=== PATIENT | female | born 1960 | race Caucasian/White ===

== ENCOUNTER 2023-01-29 14:07 | Outpatient (REF) | payer MEDICAID, SELFPAY ==
--- NOTE | 2023-01-29 13:05 | SKI_PTH ---
PATIENT: Ifrah Gonzalez LOC: [facility] U#:[id number] AGE/SX: 62/F ROOM: RE01/29/[address]: Antonio Ding DO : 1960 BED: DIS: 01/29/2023 SPEC #: [id number] RECD: 02/01/23 12:17 STATUS: SHANTE REQ #: [id number] MARGRET: 01/29/23 13:[address]: Antonio Ding DEPT: Surgical Specimen RECD BY: Delisa Clement ENTERED: 02/01/23 12:17 SP TYPE: GINA LYNN DR: HUMPHREY BARILLAS Tissues: 1 - SKIN BIOPSY(SHAVE/PUNCH) Procedures: IMMUNOPEROXIDASE STAIN SKIN LEVEL 4 Comments: [id number]
== END 2023-01-29 14:08 | disposition home or self-care (01) ==
LOC: LBN 14:07
PROVIDERS: PCP Nurse Practitioner Primary Care; Visit Provider Otolaryngology Otolaryngology/Facial Plastic Surgery
DX: D22.5 Melanocytic nevi of trunk (principal); D48.5 Neoplasm of uncertain behavior of skin
CPT/HCPCS: 88305; 88361

== ENCOUNTER 2024-08-07 16:16 | Emergency (ER) | payer MEDICAID, SELFPAY ==
[2024-08-07 16:27] VITALS: BP 101/66; PULSE 74; RESP 16; TEMP 37.1; O2SAT 98
--- NOTE | 2024-08-07 16:30 | DI.RAD_ITS ---
Exam(s) XR CHEST 2V PA LATERAL EXAM: XR CHEST 2V PA LATERAL CLINICAL HISTORY: COUGH. TECHNIQUE: 2D digital imaging was performed. COMPARISON: No exams were available for comparison FINDINGS: 2 views: Heart size is normal. The mediastinum is not widened. Left lung is clear. There is some atelectasis in the right lung base and blunting of the right costo phrenic angle consistent with small amount of right pleural fluid. IMPRESSION: Atelectasis and probable mild infiltrate in the right lung base-right lower lobe. Mild blunting of t he right costophrenic angle which probably indicates a small amount of right pleural fluid. DATA REPOSITORY: RADIATION DOSE DELIVERED:
[2024-08-07 17:54] VITALS: BP 101/66; PULSE 74; RESP 16; TEMP 37.1; O2SAT 98
--- NOTE | 2024-08-07 22:26 | ED.GENADUL_ITS ---
Discharge Plan Disposition Patient Disposition: Home Condition: Stable Discharge Details Clinical Impression: Pneumonia Primary Care Provider: HUMPHREY BARILLAS ED Provider: Molly Hilario Home Meds and New Rx's Prescriptions: New promethazine 6.25 mg/5 mL syrup 12.5 mg PO Q6H PRN (Reason: cough) Qty: 120 0RF prednisone 20 mg tablet 40 mg PO DAILY 5 Days Qty: 10 0RF benzonatate 100 mg capsule 100 mg PO TID PRN (Reason: cough) Qty: 30 0RF amoxicillin-pot clavulanate 875-125 mg tablet 1 tab PO BID Qty: 14 0RF No Action BENADRYL 25 MG capsule 25 mg PO PRN polyethylene glycol 3350 [Miralax] 17 GM powder in packet 255 gm PO for colonoscopy Qty: 1 bisacodyl [Dulcolax (bisacodyl)] 5 MG tablet,delayed release (DR/EC) 5 mg PO ONCE Qty: 4 Rx Instructions: take as directed. acetaminophen 500 mg capsule 500 mg PO Q6H PRN clonazepam 1 mg tablet 1 mg PO TID Rx Instructions: seen by psychiatry gabapentin 600 mg tablet 600 mg PO DIRECTED hydroxyzine HCl 25 mg tablet 25 mg PO DAILY PRN omeprazole 20 mg capsule,delayed release(DR/EC) 20 mg PO DAILY omeprazole 40 mg capsule,delayed release(DR/EC) 40 mg PO DAILY oxycodone-acetaminophen [Percocet] 5-325 mg tablet 1 tab PO DIRECTED albuterol sulfate [ProAir HFA] 90 mcg/actuation HFA aerosol inhaler 2 puff inhalation Q6H PRN cholecalciferol (vitamin D3) 50 mcg (2,000 unit) capsule 50 mcg PO DAILY lisinopril 10 mg tablet 20 mg PO DAILY Discharge Instructions Instructions: Pneumonia, Adult (DC) Additional Instructions: Your symptoms are consistent with pneumonia, you have been prescribed an antibiotic to start taking I have also prescribed some cough medication. The Phenergan syrup can help with cough and will also help with getting a little bit of sleep. Because you are smoker. Prednisone has been sent as well. Use your albuterol inhaler with a spacer to help with your cough Please follow-up with your primary care provider Discharge Data Discharge Date/Time-TO BE ENTERED AT DEPARTURE: 08/07/24 18:02 HPI General Date/Time Provider Initiated Documentation: 08/07/24 16:42 . Limitations to Documentation: no limitations . Information obtained by: patient . HPI Narrative: 64-year-old female with past medical history of COPD, hypertension, MS presents for evaluation of cough. She has been sick for about a week. Symptoms include body aches fatigue and cough. Cough has been nonproductive. She did have a little bit of vomiting and diarrhea the first few days of the illness, but this is resolved. Now she is eating and drinking normally. She is more concerned about her cough. She states that it so bad she cannot even smoke. She has not been having persistent fevers. Related Data Home Medications ?Medication ?Instructions ?Recorded ?Confirmed Benadryl 25 mg PO PRN 11/18/11 01/29/23 bisacodyl 5 mg tablet,delayed 5 mg PO ONCE #4 tabs 11/10/16 01/29/23 release (Dulcolax (bisacodyl)) polyethylene glycol 3350 17 gram 255 gm PO for colonoscopy #1 g 11/10/16 01/29/23 oral powder packet (Miralax) acetaminophen 500 mg capsule 500 mg PO Q6H PRN 09/08/22 01/29/23 albuterol sulfate 90 mcg/actuation 2 puff inhalation Q6H PRN 09/08/22 01/29/23 aerosol inhaler (ProAir HFA) cholecalciferol (vitamin D3) 50 50 mcg PO DAILY 09/08/22 01/29/23 mcg (2,000 unit) capsule clonazepam 1 mg tablet 1 mg PO TID 09/08/22 01/29/23 gabapentin 600 mg tablet 600 mg PO DIRECTED 09/08/22 01/29/23 hydroxyzine HCl 25 mg tablet 25 mg PO DAILY PRN 09/08/22 01/29/23 lisinopril 10 mg tablet 20 mg PO DAILY 09/08/22 01/29/23 omeprazole 20 mg capsule,delayed 20 mg PO DAILY 09/08/22 01/29/23 release omeprazole 40 mg capsule,delayed 40 mg PO DAILY 09/08/22 01/29/23 release oxycodone-acetaminophen 5 mg-325 1 tab PO DIRECTED 09/08/22 01/29/23 mg tablet (Percocet) amoxicillin 875 mg-potassium 1 tab PO BID #14 tabs 01/27/25 clavulanate 125 mg tablet benzonatate 100 mg capsule 100 mg PO TID PRN cough #30 caps 08/07/24 prednisone 20 mg tablet 40 mg (2 x 20 mg) PO DAILY 5 days 08/07/24 #10 tabs promethazine 6.25 mg/5 mL oral 12.5 mg (10 mL) PO Q6H PRN cough 08/07/24 syrup #120 mL Previous Rx's ?Medication ?Instructions ?Recorded amoxicillin 875 mg-potassium 1 tab PO BID #14 tabs 08/07/24 clavulanate 125 mg tablet benzonatate 100 mg capsule 100 mg PO TID PRN cough #30 caps 08/07/24 prednisone 20 mg tablet 40 mg (2 x 20 mg) PO DAILY 5 days 08/07/24 #10 tabs promethazine 6.25 mg/5 mL oral 12.5 mg (10 mL) PO Q6H PRN cough 08/07/24 syrup #120 mL Allergies Allergy/AdvReac Type Severity Reaction Status Date / Time azithromycin (From Zithromax) Allergy Unknown Unverified 01/29/23 13:00 ibuprofen Allergy Unknown Unverified 01/29/23 13:00 methadone Allergy Unknown Unverified 01/29/23 13:00 naproxen (From Naprosyn) Allergy Unknown Unverified 01/29/23 13:00 atorvastatin Allergy Verified 01/29/23 13:00 General Stated Complaint: RespSymp BISI: 4 Exam Narrative Exam Narrative: Review of Systems: All systems reviewed & are unremarkable except as noted in HPI and below Well-developed, no acute distress NCAT PERRL, normal conjunctiva Moist mucous membranes no wheezing, no tachypnea RRR Unlabored respiratory effort Course Vital Signs Vital signs: Vital Signs Temperature 37.1 C 08/07/24 16:27 Pulse 74 08/07/24 16:27 Respiratory Rate 16 08/07/24 16:27 Blood Pressure 101/66 08/07/24 16:27 Pulse Oximetry 98 08/07/24 16:27 Temperature 37.1 C 08/07/24 17:54 Pulse 74 08/07/24 17:54 Respiratory Rate 16 08/07/24 17:54 Respiratory Effort Normal 08/07/24 18:00 Respiratory Depth Normal 08/07/24 18:00 Blood Pressure 101/66 08/07/24 17:54 Pulse Oximetry 98 08/07/24 17:54 Pain Level 10 08/07/24 17:54 Medical Decision Making Emergent evaluation of URI symptoms. The patient is hemodynamically stable and no signs of respiratory distress on examination. She does have a smoking history. A chest x-ray was obtained and this is concerning for consolidation. I will treat with antibiotics. She has a allergy to azithromycin, so I will treat her with Augmentin. The patient also has significant tobacco use history, so she will be given steroids. She was also provided with medication to help with symptom relief of cough. Recommend follow-up with PCP as needed. Return precautions advised Quality:SDOH Health Related Social Needs: No Data to Display PFSH All Active Problems Pneumonia (Acute) Tobacco dependence syndrome (Acute) MS (multiple sclerosis) (Chronic) Idiopathic peripheral neuropathy (Acute) HTN (hypertension) (Chronic) GERD (gastroesophageal reflux disease) (Chronic) Essential hypertension (Acute) COPD (chronic obstructive pulmonary disease) (Chronic) Bipolar disorder (Chronic) Anxiety (Chronic) Medical History History of ductal carcinoma in situ of breast Hemoglobinuria Hypercalcemia Nicotine dependence PTSD (post-traumatic stress disorder) Memory loss Chronic pain syndrome Erythromelalgia Major depressive disorder Primary hyperparathyroidism Malignant neoplasm of lung Pain in left foot Pain in right foot Menopause present Pain in thoracic spine Mixed hyperlipidemia Human papilloma virus (HPV) infection Thyroid nodule Burning feet syndrome Cervical myelopathy Insomnia Abnormal mammography Abnormal blood chemistry test Erythrocytosis Intractable chronic migraine without aura Leukocytosis Primary adenocarcinoma of lower lobe of right lung Surgical History H/O breast surgery H/O section x2 History of cervical polypectomy History of bilateral tubal ligation Family History Mother Colon cancer Maternal Aunt Breast cancer Sister Thyroiditis Social History Smoking/Tobacco Use Status: Current every day Smoking risk assessment performed?: Yes Alcohol Intake: current Alcohol Intake frequency: a few times a week Substance use type: marijuana
== END 2024-08-07 18:02 | disposition home or self-care (01) ==
LOC: ER 18:14
PROVIDERS: Emergency Provider Emergency Medicine; PCP Nurse Practitioner Primary Care
DX: J18.9 Pneumonia, unspecified organism (principal); F17.210 Nicotine dependence, cigarettes, uncomplicated
CPT/HCPCS: 99283; 71046

== ENCOUNTER 2025-04-13 11:15 | Outpatient (REF) | payer MEDICAID, SELFPAY ==
--- NOTE | 2025-04-13 10:45 | PAPFT_PTH ---
PATIENT: Ifrah Gonzalez LOC: [facility] U#:[id number] AGE/SX: 64/F ROOM: RE04/13/[address]: Ifrah Antonio MD : 1960 BED: DIS: 04/13/2025 SPEC #: [id number] RECD: 04/13/25 12:50 STATUS: SHANTE REKendra #: [id number] MARGRET: 04/13/25 10:[address]: Ifrah Antonio DEPT: [facility] Cytology RECD BY: Delisa Clement ENTERED: 04/13/25 12:51 SP TYPE: PAPFT OTHR DR: HUMPHREY BARILLAS Tissues: 1 - CX/ENDOCX FOR PAP SMEARS Procedures: PAP THIN PREP/U[facility] Screening HPV DNA PROBE Comments: [id number] (HPV 16 & 18/45)
== END 2025-04-13 11:16 | disposition home or self-care (01) ==
LOC: LBN 11:15
PROVIDERS: PCP Nurse Practitioner Primary Care; Visit Provider Obstetrics & Gynecology
DX: Z12.4 Encounter for screening for malignant neoplasm of cervix (principal)
CPT/HCPCS: 88142; 87624